=== PATIENT | female | born 1955 | race Caucasian/White ===

== ENCOUNTER → 2016-11-19 | Outpatient (CLI) | payer OTHER ==
[~2016-11-19] MED LIST: ATROVENT HFA12.9 GM INH; HYDROCODONE/APA1 T16 PO; JANTOVEN2.5 MG PO; LASIX20 MG PO; LIPITOR20 MG PO; MAGNESIUM400 M1 PO; MYFORTIC180 MG PO; NORMODYNE100 MG PO; PROTONIX PO; SENNA PLUS TABL1 TAB PO; VENTOLIN5 MG/ML INH; VITAMIN D-3 PO; VITAMIN D1000 UNI1 PO
== END | disposition home or self-care (01) ==
LOC: CSSDAY 09:26
DX: M81.0 Age-related osteoporosis without current pathological fracture (principal); Z87.310 Personal history of (healed) osteoporosis fracture; Z79.899 Other long term (current) drug therapy
CPT/HCPCS: 82310; 96372; J0897